=== PATIENT | female | born 1975 | race Caucasian/White ===

== ENCOUNTER 2025-04-22 22:00 | Emergency (ER) | payer BC ==
[~2025-04-22] VITALS: Ht 162.6 cm; Wt 64.9 kg
[2025-04-22] MEDS ORDERED: ONDANSETRON 4 MG TAB.RAPDIS ONE (22:40)
[2025-04-22] MEDS: ONDANSETRON 4 MG TAB.RAPDIS SL ONE (22:41)
[2025-04-22 22:48] LABS: PLATELET COUNT (AUTO) 282 K/uL (150-450); RED BLOOD CELL COUNT(AUTO) 4.53 MIL/uL (4.0-5.2); RED CELL DISTRIBUTION WIDTH 13.4 % (11.5-15.0); WHITE BLOOD COUNT (AUTO) 15.4 K/uL (4.3-11.0)
[2025-04-22 22:56] LABS: CALCIUM, SERUM 9.4 mg/dL (8.5-10.1); CREATININE 0.9 mg/dL (0.6-1.3); SODIUM SERUM 137.0 mmol/L (136-145); UREA NITROGEN, BLOOD 22.0 mg/dL (7-18)
[2025-04-22 23:42] LABS: APPEARANCE,URINE CLEAR (CLEAR); BLOOD, URINE TRACE-INTA Ery/uL (NEGATIVE); LEUKOCYTE ESTERASE ,URINE 2+ (NEGATIVE); NITRITE, URINE NEGATIVE (NEGATIVE); UGLUCOSE NEGATIVE (NEGATIVE)
[2025-04-22] MEDS ORDERED: ONDA4TAB5 PO (23:44)
[2025-04-22] MEDS ORDERED: NITR100C6 PO (23:48)
[2025-04-23 00:20] VITALS: BP 142/89; TEMP 97.9; O2SAT 98
[2025-04-23 00:22] LABS: ADD URINE CULTURE YES
== END 2025-04-23 00:21 | disposition home or self-care (01) ==
LOC: ER 22:19
DX: T50.905A Adverse effect of unspecified drugs, medicaments and biological substances, initial encounter (principal); N39.0 Urinary tract infection, site not specified; F41.9 Anxiety disorder, unspecified; E78.5 Hyperlipidemia, unspecified; K50.90 Crohn's disease, unspecified, without complications; X58.XXXA Exposure to other specified factors, initial encounter
CPT/HCPCS: 99284; 71045; 85025; 80048; 81001; 36415; 87086; Q0162